=== PATIENT | female | born 1965 | race Caucasian/White ===

== ENCOUNTER 2020-02-14 14:51 | Emergency (ER) | payer MEDICAID ==
[~2020-02-14] VITALS: Ht 165.1 cm; Wt 127.3 kg
[~2020-02-14 14:51] MED LIST: ALBU8.5H4 IH; BENZ-16 PO; GABA-532 PO; IBUP-1984 PO; PRED20TA PO; levothyroxine
[2020-02-14 15:00] VITALS: BP 137/77
[2020-02-14 16:17] LABS: BASOPHILS # (AUTO) 0.1 X10'3 (0-0.2); BASOPHILS % (AUTO) 1.1 % (0-1); EOSINOPHILS # (AUTO) 0.2 X10'3 (0-0.9); EOSINOPHILS % (AUTO) 2.1 % (0-6); HEMATOCRIT 46.7 % (35.0-45.0); HEMOGLOBIN 15.7 g/dl (12.0-16.0); LYMPHOCYTES # (AUTO) 2.7 X10'3 (1.1-4.8); LYMPHOCYTES % (AUTO) 31.2 % (21-51); MEAN CORPUSCULAR HEMOGLOBIN 30.6 PG (27.0-31.0); MEAN CORPUSCULAR HGB CONC 33.5 g/dL (33.0-36.5); MEAN CORPUSCULAR VOLUME 91.4 FL (78-98); MEAN PLATELET VOLUME 9.3 FL (7.4-10.4); MONOCYTES # (AUTO) 0.6 X10'3 (0-0.9); MONOCYTES % (AUTO) 6.9 % (2-12); NEUTROPHILS % (AUTO) 58.7 % (42-75); PLATELET COUNT 247 X10'3 (140-440); RED BLOOD COUNT 5.11 X10'6 (4.20-5.60); RED CELL DISTRIBUTION WIDTH 13.1 % (11.5-14.5); WHITE BLOOD COUNT 8.5 X10'3 (4.5-11.0)
[2020-02-14 16:32] LABS: ALANINE AMINOTRANSFERASE 51 U/L (12-78); ALBUMIN/GLOBULIN RATIO 1.1 (1.1-1.5); ALKALINE PHOSPHATASE 77 IU/L (46-116); AMYLASE 28 U/L (25-115); ANION GAP 9 (8-16); ASPARTATE AMINO TRANSFERASE 40 U/L (10-37); BILIRUBIN,TOTAL 0.4 MG/DL (0.1-1.0); BLOOD UREA NITROGEN 14 MG/DL (7-18); CALCIUM 9.7 MG/DL (8.5-10.1); CHLORIDE 100 MMOL/L (99-107); GLUCOSE 129 MG/DL (70-104); LIPASE 98 U/L (73-393); POTASSIUM 4.1 MMOL/L (3.5-5.1); SODIUM 138 MMOL/L (135-145); TOTAL CARBON DIOXIDE 29.3 MMOL/L (24-32); TOTAL PROTEIN 7.7 G/DL (6.4-8.2); eGFR 87 ML/MIN
[2020-02-14 16:55] LABS: TROPONIN I < 0.04 NG/ML (0.0-0.05)
== END 2020-02-14 17:26 | disposition home or self-care (01) ==
LOC: ER 14:51
DX: R22.43 Localized swelling, mass and lump, lower limb, bilateral (principal); R53.83 Other fatigue; E03.9 Hypothyroidism, unspecified; Z56.0 Unemployment, unspecified; Z98.890 Other specified postprocedural states; Z88.8 Allergy status to other drugs, medicaments and biological substances; Z79.899 Other long term (current) drug therapy
CPT/HCPCS: 36415; 80053; 82150; 82948; 83690; 83880; 84443; 84484; 85025; 99283

== ENCOUNTER 2022-07-31 13:37 | Inpatient (IN) | payer BC, MEDICAID ==
[~2022-07-31] VITALS: Ht 165.1 cm; Wt 120.3 kg
[2022-07-31] MEDS ORDERED: ondansetron/PF 4mg/2ml inj IV ONE (14:00)
[2022-07-31] MEDS ORDERED: morphine 4 MG/ML inj SYRINge IV ONE ×2 (14:00→18:10)
[2022-07-31] MEDS ORDERED: mag hydrox/Alum hydrox/simeth 30ml oral suspension PO PRN (17:05)
[2022-07-31] MEDS ORDERED: metoclopramide 5 mg/ml inj IV PRN (17:05)
[2022-07-31] MEDS ORDERED: acetaminophen 325mg tablet PO PRN (17:05)
[2022-07-31] MEDS ORDERED: ondansetron 4mg rapidly disintigrating tab PO PRN (17:05)
[2022-07-31] MEDS ORDERED: magnesium hydroxide 30ml (MOM) UD suspension PO PRN (17:05)
[2022-07-31] MEDS ORDERED: bisacodyl 10mg suppository rectal RC PRN (17:05)
[2022-07-31] MEDS ORDERED: ondansetron/PF 4mg/2ml inj IV PRN (17:05)
[2022-07-31] MEDS ORDERED: magnesium 4gm in 100ml NS 100 ML IV PRN (17:05)
[2022-07-31] MEDS ORDERED: HYDROcodone/acetaminophen 5mg/325mg tablet PO PRN (17:05)
[2022-07-31] MEDS ORDERED: magnesium Cl slow-release 64mg tablet PO PRN (17:05)
[2022-07-31] MEDS ORDERED: potassium Cl 40MEQ/1/2NS 520ml 520 ML IV PRN (17:05)
[2022-07-31] MEDS ORDERED: potassium Cl 20 mEq SR tablet PO PRN ×2 (17:05)
[2022-07-31] MEDS: normal saline 1000ml 1,000 ML IV SCH (17:21)
[2022-07-31] MEDS ORDERED: NO HOME MEDS (17:21)
[2022-07-31] MEDS ORDERED: MESSAGE TO PHARMACY PO ONE (17:25)
[2022-07-31] MEDS ORDERED: DEXTROSE 15 GM of carb/4 tabs (each vial/BOTTLE has 4 tablets) PO PRN ×2 (17:25)
[2022-07-31] MEDS ORDERED: glucagon, human recombinant 1mg kit SUBCUT PRN (17:25)
[2022-07-31] MEDS ORDERED: dextrose 50%-water 50ml dispensing syringe IV PRN ×2 (17:25)
[2022-07-31] MEDS ORDERED: insulin Lispro (HumaLOG) vial - multi-dose SQ SCH (17:25)
[2022-07-31 17:36] LABS: BASOPHILS # (AUTO) 0.1 X10'3 (0-0.2); BASOPHILS % (AUTO) 0.7 % (0-1); EOSINOPHILS # (AUTO) 0.1 X10'3 (0-0.9); EOSINOPHILS % (AUTO) 0.8 % (0-6); HEMOGLOBIN 13.8 g/dl (12.0-16.0); LYMPHOCYTES # (AUTO) 2.7 X10'3 (1.1-4.8); LYMPHOCYTES % (AUTO) 19.6 % (21-51); MEAN CORPUSCULAR HGB CONC 32.9 g/dL (33.0-36.5); MEAN CORPUSCULAR VOLUME 91.1 FL (78-98); MEAN PLATELET VOLUME 9.5 FL (7.4-10.4); MONOCYTES # (AUTO) 0.8 X10'3 (0-0.9); MONOCYTES % (AUTO) 5.7 % (2-12); NEUTROPHILS % (AUTO) 73.2 % (42-75); PLATELET COUNT 212 X10'3 (140-440); RED BLOOD COUNT 4.61 X10'6 (4.20-5.60); RED CELL DISTRIBUTION WIDTH 13.3 % (11.5-14.5); WHITE BLOOD COUNT 13.6 X10'3 (4.5-11.0)
[2022-07-31 17:47] LABS: APTT 31 SECONDS (22-32)
[2022-07-31 17:49] LABS: ALBUMIN 3.5 G/DL (3.4-5.0); ALBUMIN/GLOBULIN RATIO 1.2 (1.1-1.5); ALKALINE PHOSPHATASE 68 IU/L (46-116); ANION GAP 8 (8-16); ASPARTATE AMINO TRANSFERASE 61 U/L (10-37); BILIRUBIN,TOTAL 0.6 MG/DL (0.1-1.0); BLOOD UREA NITROGEN 10 MG/DL (7-18); BUN/CREATININE RATIO 18.2 (6.6-38.0); CALCIUM 8.8 MG/DL (8.5-10.1); CHLORIDE 105 MMOL/L (99-107); CREATININE 0.55 MG/DL (0.40-0.90); GLUCOSE 107 MG/DL (70-104); POTASSIUM 4.1 MMOL/L (3.5-5.1); SODIUM 139 MMOL/L (135-145); TOTAL PROTEIN 6.5 G/DL (6.4-8.2); eGFR > 90 ML/MIN
[2022-07-31 18:08] LABS: ALANINE AMINOTRANSFERASE 51 U/L (12-78)
[2022-07-31 18:15] LABS: HEMOGLOBIN A1C 6.3 % (4.5-6.2)
[2022-07-31] MEDS: HYDROmorphone/PF 0.2 MG/ML SYRINGE IV PRN (19:01)
[2022-07-31] MEDS: K and/or MAG REPLACEMENT MC SCH (20:00)
[2022-07-31] MEDS: docusate sod 100mg capsule PO SCH (20:00)
[2022-07-31] MEDS ORDERED: temazepam 15mg capsule PO PRN (21:00)
[2022-07-31] MEDS: insulin glargine (Lantus) pen - multi-dose SQ SCH (21:00)
[2022-07-31] MEDS: HYDROmorphone inj. 0.5 MG/0.5 ML DISP.SYRIN IV PRN (23:21)
[2022-08-01] VITALS (13 sets, daily range): BP systolic 113–156; BP diastolic 43–71
[2022-08-01] MEDS: HYDROcodone/acetaminophen 10/325mg tab PO PRN ×2 (01:24→05:51)
[2022-08-01] MEDS: HYDROmorphone/PF 0.2 MG/ML SYRINGE IV PRN ×2 (01:49→06:06)
[2022-08-01] MEDS: normal saline 1000ml 1,000 ML IV SCH ×3 (01:49→21:06)
[2022-08-01 04:29] LABS: BASOPHILS # (AUTO) 0.1 X10'3 (0-0.2); BASOPHILS % (AUTO) 1.1 % (0-1); EOSINOPHILS # (AUTO) 0.1 X10'3 (0-0.9); EOSINOPHILS % (AUTO) 1.7 % (0-6); HEMATOCRIT 40.8 % (35.0-45.0); HEMOGLOBIN 13.8 g/dl (12.0-16.0); LYMPHOCYTES # (AUTO) 1.4 X10'3 (1.1-4.8); LYMPHOCYTES % (AUTO) 17.7 % (21-51); MEAN CORPUSCULAR HEMOGLOBIN 30.4 PG (27.0-31.0); MEAN CORPUSCULAR HGB CONC 33.9 g/dL (33.0-36.5); MEAN CORPUSCULAR VOLUME 89.6 FL (78-98); MEAN PLATELET VOLUME 8.9 FL (7.4-10.4); MONOCYTES # (AUTO) 0.5 X10'3 (0-0.9); MONOCYTES % (AUTO) 6.9 % (2-12); NEUTROPHILS # (AUTO) 5.6 X10'3 (1.8-7.7); NEUTROPHILS % (AUTO) 72.6 % (42-75); PLATELET COUNT 204 X10'3 (140-440); RED BLOOD COUNT 4.55 X10'6 (4.20-5.60); RED CELL DISTRIBUTION WIDTH 13.4 % (11.5-14.5); WHITE BLOOD COUNT 7.7 X10'3 (4.5-11.0)
[2022-08-01] MEDS: HYDROmorphone inj. 0.5 MG/0.5 ML DISP.SYRIN IV PRN (04:35)
[2022-08-01 04:47] LABS: ALANINE AMINOTRANSFERASE 90 U/L (12-78); ALBUMIN 3.5 G/DL (3.4-5.0); ALBUMIN/GLOBULIN RATIO 1.2 (1.1-1.5); ALKALINE PHOSPHATASE 68 IU/L (46-116); ANION GAP 8 (8-16); ASPARTATE AMINO TRANSFERASE 76 U/L (10-37); BILIRUBIN,TOTAL 0.8 MG/DL (0.1-1.0); BLOOD UREA NITROGEN 8 MG/DL (7-18); BUN/CREATININE RATIO 13.8 (6.6-38.0); CALCIUM 8.4 MG/DL (8.5-10.1); CHLORIDE 103 MMOL/L (99-107); CREATININE 0.58 MG/DL (0.40-0.90); GLUCOSE 130 MG/DL (70-104); POTASSIUM 4.1 MMOL/L (3.5-5.1); SODIUM 139 MMOL/L (135-145); TOTAL PROTEIN 6.5 G/DL (6.4-8.2); eGFR > 90 ML/MIN
--- NOTE | 2022-08-01 05:18 | NUR ---
pt refusing full turns for q2hr turning due to pain. Pt medicated for pain, still refuses. She was completely mobile and independent prior and has clear skin on admit, does not appear to be high risk for break down. So small weight shifts as tolerated being utilized for now. Will keep reinforcing the importance of turning to prevent skin breakdown.
--- NOTE | 2022-08-01 06:30 | NUR ---
Patient in room CICU 2009. I have received report from Og IVY and had the opportunity to ask questions and assume patient care.
[2022-08-01] MEDS ORDERED: naloxone 0.4 mg/ml inj IV PRN (07:25)
[2022-08-01] MEDS ORDERED: HYDROmorph/NS 0.2 mg/ml PCA 100 ML IV SCH (07:25)
[2022-08-01] MEDS: K and/or MAG REPLACEMENT MC SCH ×2 (08:00→20:00)
[2022-08-01] MEDS: docusate sod 100mg capsule PO SCH ×4 (08:00→20:00)
[2022-08-01] MEDS: sennosides/docusate sodium tablet PO SCH ×2 (09:44→19:10)
[2022-08-01] MEDS: HYDROmorph/NS 0.2 mg/ml PCA 100 ML IV SCH ×8 (09:48→23:00)
--- NOTE | 2022-08-01 09:56 | NUR ---
MD Dr. Pineda to see pt earlier this am. Explained plan and reason for delayed surgery. Plan for surgery on Friday. Call to Dr. Smith re: pain and use of HELP DESK SUPERVISOR for pt. Orders received.
[2022-08-01] MEDS ORDERED: FLU VACC QS2022-23(6MOS UP)/PF 60 MCG/0.5 ML SYRINGE IMVAC ONE (10:00)
--- NOTE | 2022-08-01 10:44 | NUR ---
Nutrition consult: Pt denies wt loss or decreased appetite per malnutrition risk screen with RN. Per EMR pt with h/o T2DM, well controlled with A1c 6.3%, DM education not warranted at this time. No nutritional needs identified at this time. Will continue to follow. Addendum: 08/01/22 at [address] Amended: Links added.
[2022-08-01] MEDS ORDERED: ipratropium/albuterol 3ml nebule NEB PRN ×2 (15:40→15:55)
--- NOTE | 2022-08-01 16:00 | NUR ---
Skin: Pt noted to have mottling looking skin from upper thigh to mid calf, bilaterally. Amado IVY noted as well. Pt states this is normal for her. Pulses remain intact and palpable, skin at thigh to toes remains warm.
--- NOTE | 2022-08-01 16:48 | NUR ---
Repositioning Pt when repositioned is very painful. Additional dose administered before moving. Pat settled down pretty well post move. C/O headache and requested Tylenol for pain.
[2022-08-01] MEDS: acetaminophen 325mg tablet PO PRN (16:55)
[2022-08-01] MEDS: ipratropium/albuterol 3ml nebule NEB SCH ×2 (19:07→23:00)
[2022-08-01] MEDS: diphenhydrAMINE 25mg capsule PO PRN (19:10)
[2022-08-01] MEDS: heparin, porcine 5000 units/ml vial SQ SCH (19:12)
[2022-08-01] MEDS: insulin glargine (Lantus) pen - multi-dose SQ SCH (21:00)
[2022-08-02] VITALS (9 sets, daily range): BP systolic 110–145; BP diastolic 60–83
[2022-08-02] MEDS: HYDROmorph/NS 0.2 mg/ml PCA 100 ML IV SCH ×12 (01:00→23:00)
[2022-08-02] MEDS: diphenhydrAMINE 25mg capsule PO PRN (02:16)
[2022-08-02] MEDS: acetaminophen 325mg tablet PO PRN ×2 (02:16→10:23)
[2022-08-02] MEDS: ipratropium/albuterol 3ml nebule NEB SCH ×6 (03:00→23:00)
[2022-08-02 05:19] LABS: BASOPHILS # (AUTO) 0.1 X10'3 (0-0.2); BASOPHILS % (AUTO) 0.8 % (0-1); EOSINOPHILS # (AUTO) 0.2 X10'3 (0-0.9); EOSINOPHILS % (AUTO) 1.5 % (0-6); HEMATOCRIT 39.9 % (35.0-45.0); HEMOGLOBIN 13.2 g/dl (12.0-16.0); LYMPHOCYTES # (AUTO) 1.4 X10'3 (1.1-4.8); LYMPHOCYTES % (AUTO) 13.5 % (21-51); MEAN CORPUSCULAR HEMOGLOBIN 30.3 PG (27.0-31.0); MEAN CORPUSCULAR VOLUME 91.8 FL (78-98); MEAN PLATELET VOLUME 9.7 FL (7.4-10.4); MONOCYTES # (AUTO) 0.9 X10'3 (0-0.9); MONOCYTES % (AUTO) 8.4 % (2-12); NEUTROPHILS # (AUTO) 8.1 X10'3 (1.8-7.7); NEUTROPHILS % (AUTO) 75.8 % (42-75); PLATELET COUNT 177 X10'3 (140-440); RED BLOOD COUNT 4.35 X10'6 (4.20-5.60); RED CELL DISTRIBUTION WIDTH 13.5 % (11.5-14.5); WHITE BLOOD COUNT 10.7 X10'3 (4.5-11.0)
[2022-08-02 05:26] LABS: ALANINE AMINOTRANSFERASE 64 U/L (12-78); ALBUMIN 3.1 G/DL (3.4-5.0); ALKALINE PHOSPHATASE 63 IU/L (46-116); ASPARTATE AMINO TRANSFERASE 30 U/L (10-37); BILIRUBIN,TOTAL 0.8 MG/DL (0.1-1.0); BLOOD UREA NITROGEN 6 MG/DL (7-18); BUN/CREATININE RATIO 12.5 (6.6-38.0); CHLORIDE 99 MMOL/L (99-107); CREATININE 0.48 MG/DL (0.40-0.90); GLUCOSE 132 MG/DL (70-104); MAGNESIUM 1.9 MG/DL (1.5-2.4); POTASSIUM 3.7 MMOL/L (3.5-5.1); SODIUM 133 MMOL/L (135-145); TOTAL PROTEIN 6.1 G/DL (6.4-8.2); eGFR > 90 ML/MIN
[2022-08-02 05:32] LABS: ANION GAP 6 (8-16); TOTAL CARBON DIOXIDE 27.7 MMOL/L (24-32)
[2022-08-02] MEDS: K and/or MAG REPLACEMENT MC SCH ×2 (07:46→20:00)
[2022-08-02] MEDS: docusate sod 100mg capsule PO SCH ×3 (07:49→21:50)
[2022-08-02] MEDS: sennosides/docusate sodium tablet PO SCH ×2 (08:48→21:50)
[2022-08-02] MEDS: heparin, porcine 5000 units/ml vial SQ SCH ×2 (08:49→21:51)
[2022-08-02] MEDS: normal saline 1000ml 1,000 ML IV SCH ×2 (08:49→16:57)
[2022-08-02] MEDS ORDERED: LORazepam 2 mg/ml vial IV PRN ×2 (10:00)
[2022-08-02] MEDS ORDERED: LORazepam 0.5 MG tablet PO PRN (10:00)
[2022-08-02] MEDS ORDERED: LORazepam 1 MG tablet PO PRN (10:00)
[2022-08-02] MEDS ORDERED: ipratropium/albuterol 3ml nebule NEB PRN (10:00)
--- NOTE | 2022-08-02 18:30 | NUR ---
Patient in room [facility] 2009. I have received report from Radha IVY and had the opportunity to ask questions and assume patient care. Addendum: 08/02/22 at 1928 by Sheridan Leong RN Amended: Links added.
--- NOTE | 2022-08-02 20:00 | NUR ---
Report called to Aubree IVY receiving nurse. Transferred via ortho bed w/trapeze to room 346B. Belongings( see belongings list). Patient awake, alert, painful with movement, using MEN'S GARMENT FITTER independently, sinus rhythm, no ectopy. peripheral pulses palpable bilaterally in lower extremities, bilateral mottling of lower extremities noted-present on admission,detailed in report to receiving RN. cap refill 3 sec. Special Issues communicated to receiving nurse.
[2022-08-02] MEDS: insulin glargine (Lantus) pen - multi-dose SQ SCH (21:00)
[2022-08-03] VITALS (11 sets, daily range): BP systolic 85–134; BP diastolic 36–77
[2022-08-03] MEDS: HYDROmorph/NS 0.2 mg/ml PCA 100 ML IV SCH ×6 (01:00→11:00)
[2022-08-03] MEDS: ipratropium/albuterol 3ml nebule NEB SCH ×6 (03:00→23:00)
[2022-08-03] MEDS: acetaminophen 325mg tablet PO PRN (04:12)
[2022-08-03] MEDS: normal saline 1000ml 1,000 ML IV SCH ×2 (04:16→15:47)
[2022-08-03 05:53] LABS: BASOPHILS # (AUTO) 0.1 X10'3 (0-0.2); BASOPHILS % (AUTO) 0.5 % (0-1); EOSINOPHILS # (AUTO) 0.1 X10'3 (0-0.9); EOSINOPHILS % (AUTO) 0.6 % (0-6); HEMATOCRIT 38.8 % (35.0-45.0); LYMPHOCYTES # (AUTO) 1.3 X10'3 (1.1-4.8); LYMPHOCYTES % (AUTO) 11.7 % (21-51); MEAN CORPUSCULAR HEMOGLOBIN 30.4 PG (27.0-31.0); MEAN CORPUSCULAR HGB CONC 33.6 g/dL (33.0-36.5); MEAN CORPUSCULAR VOLUME 90.4 FL (78-98); MEAN PLATELET VOLUME 9.5 FL (7.4-10.4); MONOCYTES # (AUTO) 0.9 X10'3 (0-0.9); MONOCYTES % (AUTO) 8.2 % (2-12); NEUTROPHILS # (AUTO) 8.7 X10'3 (1.8-7.7); PLATELET COUNT 185 X10'3 (140-440); RED BLOOD COUNT 4.29 X10'6 (4.20-5.60); RED CELL DISTRIBUTION WIDTH 13.1 % (11.5-14.5); WHITE BLOOD COUNT 11.1 X10'3 (4.5-11.0)
[2022-08-03 05:57] LABS: ALANINE AMINOTRANSFERASE 47 U/L (12-78); ALBUMIN 2.9 G/DL (3.4-5.0); ALBUMIN/GLOBULIN RATIO 0.8 (1.1-1.5); ALKALINE PHOSPHATASE 67 IU/L (46-116); ANION GAP 3 (8-16); ASPARTATE AMINO TRANSFERASE 20 U/L (10-37); BILIRUBIN,TOTAL 0.7 MG/DL (0.1-1.0); BLOOD UREA NITROGEN 7 MG/DL (7-18); BUN/CREATININE RATIO 12.7 (6.6-38.0); CALCIUM 8.7 MG/DL (8.5-10.1); CHLORIDE 99 MMOL/L (99-107); CREATININE 0.55 MG/DL (0.40-0.90); GLUCOSE 163 MG/DL (70-104); POTASSIUM 3.7 MMOL/L (3.5-5.1); SODIUM 132 MMOL/L (135-145); TOTAL CARBON DIOXIDE 30.5 MMOL/L (24-32); TOTAL PROTEIN 6.7 G/DL (6.4-8.2); eGFR > 90 ML/MIN
--- NOTE | 2022-08-03 07:00 | NUR ---
Patient in room [facility] 346. I have received report from ROBERTH IVY and had the opportunity to ask questions and assume patient care.
[2022-08-03] MEDS: docusate sod 100mg capsule PO SCH ×2 (07:45→20:13)
[2022-08-03] MEDS: sennosides/docusate sodium tablet PO SCH ×2 (07:47→20:14)
[2022-08-03] MEDS: K and/or MAG REPLACEMENT MC SCH ×2 (08:00→19:19)
[2022-08-03] MEDS ORDERED: fentaNYL/PF 50MCG/1 ML 2ML syringe ONE (09:36)
[2022-08-03] MEDS ORDERED: midazolam 1 mg/ML 2ml injection ONE (09:37)
[2022-08-03] MEDS ORDERED: ceFAZolin 1000mg inj ONE ×3 (09:57)
[2022-08-03] MEDS ORDERED: propofol inj 20 ML IV ONE (09:57)
[2022-08-03] MEDS ORDERED: LIDOcaine 2% (20mg/ml) 5ml vial ONE (09:57)
[2022-08-03] MEDS ORDERED: ePHEDrine 50MG/ML INJ. ONE (09:57)
[2022-08-03] MEDS ORDERED: ondansetron/PF 4mg/2ml inj ONE (09:58)
[2022-08-03] MEDS ORDERED: dexamethasone sod phosphate 4mg/ml inj. ONE (09:58)
[2022-08-03] MEDS ORDERED: ROPIVAcaine 0.5% (5mg/ml) 30ml vial IJ ONE (10:00)
--- NOTE | 2022-08-03 10:22 | NUR ---
Received from OR via , accompanied by Anesthesiologist CHAVA OR NURSE and report given by Anesthesiolgist. PT IS DROWSY YET ABLE TO RESPOND TO VERBAL STIMULI. DENIES PAIN OR DISCOMFORT. ROSEN IN PLACE; PATENT. [place] DRESSING TO UPPER RT THIGH; CDI. HYPOTENSIVE; PER DONNIE WATCH CLOSELY BEFORE GIVING MED. 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 Addendum: 08/03/22 at 1123 by Mimi Doss RN Amended: Links added.
--- NOTE | 2022-08-03 11:33 | NUR ---
Patient in room [facility] 346. I have received report from TAVARES IVY and had the opportunity to ask questions and assume patient care.
--- NOTE | 2022-08-03 11:42 | NUR ---
PATIENT TAKEN TO ORTHO FLOOR ROOM WITH ALL BELONGINGS AND HOOKED UP TO ALL MONITORS IN ROOM AND REPORT GIVEN TO RN WHO HAS TAKEN OVER PATIENT CARE. Addendum: 08/03/22 at 1207 by Mimi Doss RN Amended: Links added.
[2022-08-03] MEDS ORDERED: PCA WASTE DOCUMENTATION MC SCH (12:50)
[2022-08-03] MEDS: HYDROcodone/acetaminophen 10/325mg tab PO PRN (15:41)
--- NOTE | 2022-08-03 17:32 | NUR ---
PAGER ID: [phone] MESSAGE: J[facility]TON[facility]G [id number] RE: 346M Leticia FLORES PATIENT STATES THAT THE NORCO IS NOT WORKING AND STILL STATING 04/01 PAIN. MELANIA CHOU Addendum: 08/03/22 at 1734 by Apolinar Baig RN MD RESPONDED AT THIS TIME WITH NEW ORDERS.
[2022-08-03] MEDS ORDERED: HYDROmorphone inj. 0.5 MG/0.5 ML DISP.SYRIN IV PRN (17:35)
--- NOTE | 2022-08-03 18:29 | NUR ---
Problems reprioritized. Patient report given, questions answered & plan of care reviewed with RONA IVY.
--- NOTE | 2022-08-03 18:31 | NUR ---
Patient in room [facility] 346. I have received report from CATA Bee and had the opportunity to ask questions and assume patient care.
[2022-08-03] MEDS: famotidine 20mg tablet PO SCH (20:14)
[2022-08-03] MEDS: insulin glargine (Lantus) pen - multi-dose SQ SCH (21:35)
[2022-08-04] MEDS: oxyCODONE/APAP 5-325mg tablet PO PRN ×2 (02:38→10:04)
[2022-08-04 02:40] VITALS: BP 136/72
[2022-08-04] MEDS: ipratropium/albuterol 3ml nebule NEB SCH ×3 (02:55→11:57)
[2022-08-04 05:39] LABS: BASOPHILS % (AUTO) 0.4 % (0-1); EOSINOPHILS % (AUTO) 0.2 % (0-6); HEMATOCRIT 37.3 % (35.0-45.0); HEMOGLOBIN 12.4 g/dl (12.0-16.0); LYMPHOCYTES # (AUTO) 1.1 X10'3 (1.1-4.8); LYMPHOCYTES % (AUTO) 11.1 % (21-51); MEAN CORPUSCULAR HEMOGLOBIN 30.1 PG (27.0-31.0); MEAN CORPUSCULAR HGB CONC 33.3 g/dL (33.0-36.5); MEAN CORPUSCULAR VOLUME 90.4 FL (78-98); MEAN PLATELET VOLUME 9.9 FL (7.4-10.4); MONOCYTES # (AUTO) 1.1 X10'3 (0-0.9); MONOCYTES % (AUTO) 10.4 % (2-12); NEUTROPHILS # (AUTO) 7.8 X10'3 (1.8-7.7); NEUTROPHILS % (AUTO) 77.9 % (42-75); PLATELET COUNT 190 X10'3 (140-440); RED BLOOD COUNT 4.13 X10'6 (4.20-5.60); RED CELL DISTRIBUTION WIDTH 13.2 % (11.5-14.5); WHITE BLOOD COUNT 10.1 X10'3 (4.5-11.0)
[2022-08-04] MEDS: oxyCODONE/APAP 10/325mg tablet PO PRN ×2 (05:45→15:27)
[2022-08-04 05:48] LABS: ALANINE AMINOTRANSFERASE 39 U/L (12-78); ALBUMIN 2.7 G/DL (3.4-5.0); ALBUMIN/GLOBULIN RATIO 0.7 (1.1-1.5); ALKALINE PHOSPHATASE 71 IU/L (46-116); ANION GAP 7 (8-16); ASPARTATE AMINO TRANSFERASE 21 U/L (10-37); BILIRUBIN,TOTAL 0.4 MG/DL (0.1-1.0); BLOOD UREA NITROGEN 9 MG/DL (7-18); BUN/CREATININE RATIO 17.6 (6.6-38.0); CALCIUM 8.8 MG/DL (8.5-10.1); CHLORIDE 102 MMOL/L (99-107); CREATININE 0.51 MG/DL (0.40-0.90); GLUCOSE 155 MG/DL (70-104); MAGNESIUM 2.3 MG/DL (1.5-2.4); POTASSIUM 4.2 MMOL/L (3.5-5.1); SODIUM 138 MMOL/L (135-145); TOTAL CARBON DIOXIDE 28.8 MMOL/L (24-32); TOTAL PROTEIN 6.4 G/DL (6.4-8.2); eGFR > 90 ML/MIN
--- NOTE | 2022-08-04 06:14 | NUR ---
Problems reprioritized. Patient report given, questions answered & plan of care reviewed with CATA Bee.
[2022-08-04 07:08] VITALS: BP 113/57
[2022-08-04] MEDS: K and/or MAG REPLACEMENT MC SCH (08:00)
[2022-08-04] MEDS: famotidine 20mg tablet PO SCH (08:16)
[2022-08-04] MEDS: sennosides/docusate sodium tablet PO SCH (08:16)
[2022-08-04] MEDS: docusate sod 100mg capsule PO SCH (08:17)
[2022-08-04] MEDS ORDERED: aspirin 325mg tablet PO SCH (08:30)
--- NOTE | 2022-08-04 09:59 | NUR ---
patient refused to have insulin at this time. she understands that her blood glucose is elevated and still does not want insulin treatment at this time.
[2022-08-04 10:53] VITALS: BP 135/60
--- NOTE | 2022-08-04 15:16 | NUR ---
PAGER ID: [phone] MESSAGE: [facility]G [id number] RE: [address]B FLOR[address] Leticia PATIENTS CT IS RESULTED AND SHE WOULD LIKE TO GO HOME. SHE JUST PULLED OUT HER IV. THANKS
[2022-08-04] MEDS ORDERED: PER5325T PO (15:24)
[2022-08-04] MEDS ORDERED: ASPI-1 PO (15:24)
--- NOTE | 2022-08-04 18:45 | NUR ---
message sent to case management to have home health started on this patient.
--- NOTE | 2022-08-04 18:49 | NUR ---
Patient discharged home with front wheel walker. Patient has taken out the IV prior to discharge. No dressing needed. Patient left with all of the belongings at this time. Patient discharge teaching was done with family in the room. New medications were gone over at discharge and patient expressed verbal understanding of teaching. Patient left in wheel chair to the [facility] and was transported home via private vehicle. Case management was notified of the discharge with home health.
== END 2022-08-04 17:07 | disposition home or self-care (01) | DRG 482 ==
LOC: ER 13:38 → ED HOLD 17:04 → CICU 2S 08-01 01:05 → SUR 3N 08-02 20:18
PROVIDERS: ADMIT Family Medicine; ATTEND Family Medicine
PROC: 0QS634Z Reposition Right Upper Femur with Internal Fixation Device, Percutaneous Approach (ICD-10-PCS; principal; 2022-08-03 09:31)
DX: S72.091A Other fracture of head and neck of right femur, initial encounter for closed fracture (principal); E03.9 Hypothyroidism, unspecified; E11.9 Type 2 diabetes mellitus without complications; W01.0XXA Fall on same level from slipping, tripping and stumbling without subsequent striking against object, initial encounter; Z20.822 Contact with and (suspected) exposure to COVID-19; G47.36 Sleep related hypoventilation in conditions classified elsewhere; Y92.009 Unspecified place in unspecified non-institutional (private) residence as the place of occurrence of the external cause; Z79.82 Long term (current) use of aspirin; Z85.43 Personal history of malignant neoplasm of ovary; Z87.891 Personal history of nicotine dependence; Z90.710 Acquired absence of both cervix and uterus; Z88.8 Allergy status to other drugs, medicaments and biological substances; Z90.49 Acquired absence of other specified parts of digestive tract; Z56.0 Unemployment, unspecified
CPT/HCPCS: 36415; 71045; 71250; 72192; 73502; 76000; 80053; 82948; 83036; 83735; 84443; 85025; 85610; 85730; 86885; 86900; 86901; 87081; 87811; 90686; 94640; 94760; 96374; 96375; 97110; 97116; 97161; 97530; 99285; A4615; A4618; A4620; A5200; A6213; A7000; C1713; G0378; J0690; J1100; J1170; J1644; J1815; J2060; J2250; J2270; J2405; J2704; J2795; J3010; J3490; J7030; J7060; J7120; Q0163

== ENCOUNTER 2022-08-07 08:52 | Inpatient (IN) | payer BC ==
[~2022-08-07] VITALS: Ht 167.6 cm; Wt 127.3 kg
[~2022-08-07 08:52] MED LIST changes: -ALBU8.5H4 IH; +ASPI-1 PO; -BENZ-16 PO; -GABA-532 PO; -IBUP-1984 PO; +PER5325T PO; -PRED20TA PO; -levothyroxine
[2022-08-07] MEDS ORDERED: normal saline 1000ML IV soln IVB ONE (09:20)
[2022-08-07] MEDS ORDERED: ondansetron/PF 4mg/2ml inj IV ONE (09:20)
[2022-08-07 09:34] LABS: BASOPHILS # (AUTO) 0.1 X10'3 (0-0.2); BASOPHILS % (AUTO) 1.3 % (0-1); EOSINOPHILS # (AUTO) 0.4 X10'3 (0-0.9); EOSINOPHILS % (AUTO) 5.6 % (0-6); HEMATOCRIT 38.6 % (35.0-45.0); HEMOGLOBIN 12.9 g/dl (12.0-16.0); LYMPHOCYTES # (AUTO) 2.4 X10'3 (1.1-4.8); LYMPHOCYTES % (AUTO) 31.1 % (21-51); MEAN CORPUSCULAR HGB CONC 33.3 g/dL (33.0-36.5); MEAN PLATELET VOLUME 8.8 FL (7.4-10.4); MONOCYTES # (AUTO) 0.7 X10'3 (0-0.9); NEUTROPHILS # (AUTO) 4.2 X10'3 (1.8-7.7); PLATELET COUNT 257 X10'3 (140-440); RED CELL DISTRIBUTION WIDTH 13.6 % (11.5-14.5); WHITE BLOOD COUNT 7.9 X10'3 (4.5-11.0)
[2022-08-07] MEDS: morphine 4 MG/ML inj SYRINge IV PRN ×2 (09:54→09:58)
[2022-08-07 10:03] LABS: ALANINE AMINOTRANSFERASE 43 U/L (12-78); ALBUMIN 2.8 G/DL (3.4-5.0); ALBUMIN/GLOBULIN RATIO 0.8 (1.1-1.5); ALKALINE PHOSPHATASE 71 IU/L (46-116); ASPARTATE AMINO TRANSFERASE 30 U/L (10-37); BILIRUBIN,TOTAL 0.4 MG/DL (0.1-1.0); BLOOD UREA NITROGEN 10 MG/DL (7-18); BUN/CREATININE RATIO 17.5 (6.6-38.0); CALCIUM 8.7 MG/DL (8.5-10.1); CREATININE 0.57 MG/DL (0.40-0.90); GLUCOSE 112 MG/DL (70-104); TOTAL CARBON DIOXIDE 30.1 MMOL/L (24-32); TOTAL PROTEIN 6.3 G/DL (6.4-8.2); eGFR > 90 ML/MIN
[2022-08-07 10:24] LABS: ANION GAP 6 (8-16); CHLORIDE 104 MMOL/L (99-107); POTASSIUM 3.7 MMOL/L (3.5-5.1); SODIUM 140 MMOL/L (135-145)
[2022-08-07] MEDS ORDERED: iohexol 350MG/ML 100ml bottle IV ONE (10:37)
[2022-08-07] MEDS ORDERED: heparin 10,000 units/1 ML INJ IV ONE ×2 (12:05)
[2022-08-07 12:28] LABS: APTT 30 SECONDS (22-32)
[2022-08-07 12:33] LABS: ABG HCO3 26.7 mmol/L (22.0-26.0); ABG OXYGEN SATURATION 97.7 % (94-97); ABG PCO2 (T) 40.7 mmHg (32.0-45.0); ABG PO2 (T) 96.4 mmHg (75.0-100.0); ALLEN'S TEST POSITIVE; FCOHb 0.6 % (0.0-3.9); FLOW 4 L/min; FMetHb 0.2 % (0.0-1.5); FO2Hb 96.9 % (94-97); PATIENT TEMPERATURE 36.2; TOTAL HEMOGLOBIN 13.3 G/dl (12.0-16.0)
[2022-08-07] MEDS ORDERED: HYDROcodone/acetaminophen 10/325mg tab PO PRN (12:45)
[2022-08-07] MEDS ORDERED: magnesium Cl slow-release 64mg tablet PO PRN (12:45)
[2022-08-07] MEDS ORDERED: potassium Cl 40MEQ/1/2NS 520ml 520 ML IV PRN (12:45)
[2022-08-07] MEDS ORDERED: magnesium 4gm in 100ml NS 100 ML IV PRN (12:45)
[2022-08-07] MEDS ORDERED: mag hydrox/Alum hydrox/simeth 30ml oral suspension PO PRN (12:45)
[2022-08-07] MEDS ORDERED: ondansetron 4mg rapidly disintigrating tab PO PRN (12:45)
[2022-08-07] MEDS ORDERED: HYDROmorphone/PF 0.2 MG/ML SYRINGE IV PRN (12:45)
[2022-08-07] MEDS ORDERED: potassium Cl 20 mEq SR tablet PO PRN ×2 (12:45)
[2022-08-07] MEDS ORDERED: acetaminophen 325mg tablet PO PRN ×2 (12:45)
[2022-08-07] MEDS ORDERED: HYDROcodone/acetaminophen 5mg/325mg tablet PO PRN (12:45)
[2022-08-07] MEDS ORDERED: heparin 25,000 UNIT/250ml bag 250 ML IV PRN (12:45)
[2022-08-07] MEDS ORDERED: acetaminophen 650mg rectal suppository RC PRN (12:45)
[2022-08-07] MEDS ORDERED: magnesium hydroxide 30ml (MOM) UD suspension PO PRN (12:45)
[2022-08-07] MEDS ORDERED: ASPI-10 PO (12:58)
[2022-08-07] MEDS ORDERED: OXYC-145 PO (12:58)
[2022-08-07] MEDS: heparin 25,000 UNIT/250ml bag 250 ML IV PRN (13:02)
[2022-08-07 13:27] LABS: CLARITY,URINE CLEAR (Clear); COLOR,URINE YELLOW (Yellow); GLUCOSE, URINE NEGATIVE (Neg); KETONES,URINE NEGATIVE (Neg); LEUKOCYTE ESTERASE ,URINE NEGATIVE (Neg); NITRITES, URINE NEGATIVE (Neg); OCCULT BLOOD,URINE NEGATIVE (Neg); PROTEIN,URINE NEGATIVE (Neg); UROBILINOGEN,URINE 0.2 E.U/dL (0.2-1.0)
[2022-08-07 13:28] LABS: UA COLLECTION TYPE STRAIGHT CATH
[2022-08-07] MEDS ORDERED: HYDROmorphone inj. 0.5 MG/0.5 ML DISP.SYRIN IV PRN (16:40)
[2022-08-07] MEDS: K and/or MAG REPLACEMENT MC SCH (19:36)
[2022-08-07] MEDS: docusate sod 100mg capsule PO SCH (20:00)
[2022-08-07] MEDS ORDERED: temazepam 15mg capsule PO PRN (21:00)
--- NOTE | 2022-08-07 23:52 | NUR ---
Received from ER per stretcher, pt able to move self from stretcher to bed. Pt. is on 02 2L NC Sob with activity. Sats 96%. Pt. is on Heparin gtt at 1600 units per hour per peripheral IV. Last ptt 118, will redraw at 1200 MN. Pt has a gonzales cath with mod amt gato clear urine. Right hip incision slightly bruised with several noel intact.
[2022-08-08] VITALS (7 sets, daily range): BP systolic 107–136; BP diastolic 41–69
[2022-08-08] MEDS: ondansetron/PF 4mg/2ml inj IV PRN ×3 (02:15→20:06)
[2022-08-08] MEDS: heparin 10,000 units/1 ML INJ IV PRN ×2 (02:18→22:38)
[2022-08-08] MEDS: HYDROmorphone 1 mg/ml syringe IV PRN ×3 (02:31→20:07)
--- NOTE | 2022-08-08 03:31 | NUR ---
Ptt 32 Bolused and Heparin gtt adjusted accordingly. Pharmacy made aware. Pt. crying c/o right and left inner thigh pain and nausea medicated as needed tolerated well.
[2022-08-08] MEDS: heparin 25,000 UNIT/250ml bag 250 ML IV PRN ×2 (04:48→20:36)
[2022-08-08 06:49] LABS: BASOPHILS # (AUTO) 0.1 X10'3 (0-0.2); EOSINOPHILS # (AUTO) 0.5 X10'3 (0-0.9); EOSINOPHILS % (AUTO) 5.2 % (0-6); HEMATOCRIT 37.8 % (35.0-45.0); HEMOGLOBIN 12.3 g/dl (12.0-16.0); LYMPHOCYTES % (AUTO) 31.5 % (21-51); MEAN CORPUSCULAR HEMOGLOBIN 29.6 PG (27.0-31.0); MEAN CORPUSCULAR HGB CONC 32.6 g/dL (33.0-36.5); MEAN CORPUSCULAR VOLUME 90.6 FL (78-98); MEAN PLATELET VOLUME 9.1 FL (7.4-10.4); MONOCYTES # (AUTO) 0.8 X10'3 (0-0.9); MONOCYTES % (AUTO) 8.7 % (2-12); NEUTROPHILS % (AUTO) 53.6 % (42-75); PLATELET COUNT 278 X10'3 (140-440); RED BLOOD COUNT 4.17 X10'6 (4.20-5.60); RED CELL DISTRIBUTION WIDTH 13.9 % (11.5-14.5); WHITE BLOOD COUNT 9.4 X10'3 (4.5-11.0)
[2022-08-08 07:05] LABS: ALANINE AMINOTRANSFERASE 35 U/L (12-78); ALBUMIN 2.7 G/DL (3.4-5.0); ALBUMIN/GLOBULIN RATIO 0.8 (1.1-1.5); ALKALINE PHOSPHATASE 74 IU/L (46-116); ANION GAP 6 (8-16); BILIRUBIN,TOTAL 0.5 MG/DL (0.1-1.0); BLOOD UREA NITROGEN 12 MG/DL (7-18); BUN/CREATININE RATIO 22.2 (6.6-38.0); CHLORIDE 102 MMOL/L (99-107); CREATININE 0.54 MG/DL (0.40-0.90); GLUCOSE 119 MG/DL (70-104); MAGNESIUM 2.1 MG/DL (1.5-2.4); SODIUM 138 MMOL/L (135-145); TOTAL CARBON DIOXIDE 30.2 MMOL/L (24-32); TOTAL PROTEIN 6.1 G/DL (6.4-8.2); eGFR > 90 ML/MIN
[2022-08-08 07:10] LABS: ASPARTATE AMINO TRANSFERASE 39 U/L (10-37); POTASSIUM 4.5 MMOL/L (3.5-5.1)
[2022-08-08] MEDS: pantoprazole 40mg Tablet.DR PO SCH (07:28)
[2022-08-08] MEDS: docusate sod 100mg capsule PO SCH ×2 (07:28→20:06)
[2022-08-08] MEDS: K and/or MAG REPLACEMENT MC SCH ×2 (08:00→19:10)
--- NOTE | 2022-08-08 11:55 | NUR ---
Student documentation: I have reviewed and agree with all interventions, assessments performed and documented by Marvin student nurse.
--- NOTE | 2022-08-08 23:00 | NUR ---
Pt. is awake alert oriented in good spirits still c/o right hip pain. Medicated by IV as ordered. Will request po meds in am. IV in left arm intact Heparin gtt infusing at 1600 units /hr. PTT result 34. And dose increased to 2100 units/hr. Next ptt 0445 am. Pt. encouraged to keep right leg elevated on pillow bilateral pedal pulses palpable skin is warm and dry. Pt. still has staple sutures in right hip with light purple bruises. Able to walk today with c/o wobbly legs as yesterday. Pt has a purewick with mod amt yellow clear urine. Plan for home on oral blood thinner and walker or cane.
[2022-08-09] MEDS: HYDROmorphone 1 mg/ml syringe IV PRN (00:33)
[2022-08-09 02:07] VITALS: BP 117/59
[2022-08-09 04:54] LABS: BASOPHILS # (AUTO) 0.1 X10'3 (0-0.2); BASOPHILS % (AUTO) 1.2 % (0-1); EOSINOPHILS # (AUTO) 0.5 X10'3 (0-0.9); EOSINOPHILS % (AUTO) 5.1 % (0-6); HEMATOCRIT 37.9 % (35.0-45.0); HEMOGLOBIN 12.8 g/dl (12.0-16.0); LYMPHOCYTES # (AUTO) 3.2 X10'3 (1.1-4.8); LYMPHOCYTES % (AUTO) 35.3 % (21-51); MEAN CORPUSCULAR HEMOGLOBIN 30.3 PG (27.0-31.0); MEAN CORPUSCULAR HGB CONC 33.8 g/dL (33.0-36.5); MEAN CORPUSCULAR VOLUME 89.6 FL (78-98); MEAN PLATELET VOLUME 8.2 FL (7.4-10.4); MONOCYTES # (AUTO) 0.7 X10'3 (0-0.9); MONOCYTES % (AUTO) 7.8 % (2-12); NEUTROPHILS # (AUTO) 4.6 X10'3 (1.8-7.7); NEUTROPHILS % (AUTO) 50.6 % (42-75); PLATELET COUNT 288 X10'3 (140-440); RED BLOOD COUNT 4.23 X10'6 (4.20-5.60); RED CELL DISTRIBUTION WIDTH 13.8 % (11.5-14.5); WHITE BLOOD COUNT 9.1 X10'3 (4.5-11.0)
--- NOTE | 2022-08-09 05:00 | NUR ---
Ptt. 83 Reduced Heparin gtt to 2000u/hr. Pt. is tolerating Heparin well no signs of bleeding.
[2022-08-09 05:06] LABS: ALANINE AMINOTRANSFERASE 39 U/L (12-78); ALBUMIN 2.8 G/DL (3.4-5.0); ALBUMIN/GLOBULIN RATIO 0.8 (1.1-1.5); ALKALINE PHOSPHATASE 77 IU/L (46-116); ANION GAP 4 (8-16); ASPARTATE AMINO TRANSFERASE 25 U/L (10-37); BILIRUBIN,TOTAL 0.4 MG/DL (0.1-1.0); BLOOD UREA NITROGEN 10 MG/DL (7-18); BUN/CREATININE RATIO 17.2 (6.6-38.0); CHLORIDE 101 MMOL/L (99-107); CREATININE 0.58 MG/DL (0.40-0.90); GLUCOSE 115 MG/DL (70-104); MAGNESIUM 1.9 MG/DL (1.5-2.4); POTASSIUM 4.3 MMOL/L (3.5-5.1); SODIUM 138 MMOL/L (135-145); TOTAL CARBON DIOXIDE 32.7 MMOL/L (24-32); TOTAL PROTEIN 6.2 G/DL (6.4-8.2); eGFR > 90 ML/MIN
[2022-08-09] MEDS: heparin 25,000 UNIT/250ml bag 250 ML IV PRN (05:29)
[2022-08-09 07:00] VITALS: BP 141/86
[2022-08-09] MEDS: pantoprazole 40mg Tablet.DR PO SCH (07:30)
[2022-08-09] MEDS: docusate sod 100mg capsule PO SCH (08:00)
[2022-08-09] MEDS: K and/or MAG REPLACEMENT MC SCH (08:00)
[2022-08-09] MEDS ORDERED: APIX5TAB3 PO (12:17)
== END 2022-08-09 15:33 | disposition home or self-care (01) | DRG 299 ==
LOC: ER 08:52 → ED HOLD 12:56 → UNDOADMIN 12:56 → ED HOLD 21:43 → PCU 3S 23:25 → ED HOLD 23:25
PROVIDERS: ADMIT Family Medicine; ATTEND Family Medicine
PROC: B32T1ZZ Computerized Tomography (CT Scan) of Left Pulmonary Artery using Low Osmolar Contrast (ICD-10-PCS; principal; 2022-08-07)
PROC: B3201ZZ Computerized Tomography (CT Scan) of Thoracic Aorta using Low Osmolar Contrast (ICD-10-PCS; 2022-08-07)
PROC: B32S1ZZ Computerized Tomography (CT Scan) of Right Pulmonary Artery using Low Osmolar Contrast (ICD-10-PCS; 2022-08-07)
DX: I82.461 Acute embolism and thrombosis of right calf muscular vein (principal); I26.93 Single subsegmental thrombotic pulmonary embolism without acute cor pulmonale; J96.01 Acute respiratory failure with hypoxia; E03.9 Hypothyroidism, unspecified; E11.9 Type 2 diabetes mellitus without complications; Z79.01 Long term (current) use of anticoagulants; Z85.43 Personal history of malignant neoplasm of ovary; Z90.710 Acquired absence of both cervix and uterus; Z56.0 Unemployment, unspecified; Z88.8 Allergy status to other drugs, medicaments and biological substances; Z79.899 Other long term (current) drug therapy; Z79.82 Long term (current) use of aspirin; S72.91XD Unspecified fracture of right femur, subsequent encounter for closed fracture with routine healing
CPT/HCPCS: 36415; 36600; 71045; 71275; 80053; 81003; 82803; 83735; 83880; 84484; 85018; 85025; 85730; 87081; 93005; 93306; 93971; 96361; 96374; 96375; 97110; 97161; 97530; 99291; A6258; G0378; J1170; J1644; J2270; J2405; J3490; J7030; Q9967

== ENCOUNTER 2022-08-17 12:04 | Emergency (ER) | payer BC ==
[~2022-08-17] VITALS: Ht 165.1 cm; Wt 118.0 kg
[~2022-08-17 12:04] MED LIST changes: +APIX5TAB3 PO; -ASPI-1 PO; +OXYC-145 PO; -PER5325T PO
[2022-08-17 12:23] VITALS: BP 117/84
== END 2022-08-17 13:12 | disposition home or self-care (01) ==
LOC: ER 12:04
DX: S71.011D Laceration without foreign body, right hip, subsequent encounter (principal); Z48.00 Encounter for change or removal of nonsurgical wound dressing; E03.9 Hypothyroidism, unspecified; Z87.81 Personal history of (healed) traumatic fracture; Z88.5 Allergy status to narcotic agent; X58.XXXD Exposure to other specified factors, subsequent encounter
CPT/HCPCS: 99281

== ENCOUNTER 2024-06-02 00:06 | Emergency (ER) | payer BC ==
[~2024-06-02] VITALS: Ht 167.6 cm; Wt 110.0 kg
[2024-06-02] MEDS: bisacodyl 10mg suppository rectal RC ONE (01:15)
[2024-06-02 01:17] LABS: BASOPHILS # (AUTO) 0.1 X10'3 (0-0.2); BASOPHILS % (AUTO) 1.3 % (0-1); EOSINOPHILS # (AUTO) 0.2 X10'3 (0-0.9); HEMATOCRIT 42.7 % (35.0-45.0); HEMOGLOBIN 14.6 g/dl (12.0-16.0); LYMPHOCYTES # (AUTO) 2.8 X10'3 (1.1-4.8); LYMPHOCYTES % (AUTO) 29.8 % (21-51); MEAN CORPUSCULAR HEMOGLOBIN 30.8 PG (27.0-31.0); MEAN CORPUSCULAR HGB CONC 34.1 g/dL (33.0-36.5); MEAN CORPUSCULAR VOLUME 90.3 FL (78-98); MEAN PLATELET VOLUME 9.4 FL (7.4-10.4); MONOCYTES # (AUTO) 0.6 X10'3 (0-0.9); MONOCYTES % (AUTO) 6.6 % (2-12); NEUTROPHILS # (AUTO) 5.6 X10'3 (1.8-7.7); NEUTROPHILS % (AUTO) 60.3 % (42-75); PLATELET COUNT 261 X10'3 (140-440); RED BLOOD COUNT 4.72 X10'6 (4.20-5.60); WHITE BLOOD COUNT 9.4 X10'3 (4.5-11.0)
[2024-06-02 01:32] LABS: ALANINE AMINOTRANSFERASE 41 U/L (12-78); ALBUMIN 3.8 G/DL (3.4-5.0); ALBUMIN/GLOBULIN RATIO 1.1 (1.1-1.5); ALKALINE PHOSPHATASE 117 IU/L (46-116); ANION GAP 7 (8-16); ASPARTATE AMINO TRANSFERASE 21 U/L (10-37); BILIRUBIN,DIRECT 0.1 MG/DL (0-0.3); BILIRUBIN,TOTAL 0.4 MG/DL (0.1-1.0); BLOOD UREA NITROGEN 21 MG/DL (7-18); BUN/CREATININE RATIO 29.6 (10.0-20.0); CALCIUM 9.2 MG/DL (8.5-10.1); CHLORIDE 105 MMOL/L (99-107); CREATININE 0.71 MG/DL (0.40-0.90); GLUCOSE 109 MG/DL (70-104); LIPASE 25 U/L (16-77); POTASSIUM 3.9 MMOL/L (3.5-5.1); SODIUM 140 MMOL/L (135-145); TOTAL CARBON DIOXIDE 27.6 MMOL/L (24-32); TOTAL PROTEIN 7.4 G/DL (6.4-8.2); eCRCL 80 ML/MIN; eGFR 84 ML/MIN
[2024-06-02] MEDS: normal saline 1000ML IV soln IVB ONE (02:25)
[2024-06-02] MEDS: lactulose 20gm/30ml cup PO ONE (02:26)
[2024-06-02] MEDS ORDERED: BISA10SU60 RC (02:47)
[2024-06-02 02:49] LABS: BILIRUBIN,URINE NEGATIVE (Neg); CLARITY,URINE CLEAR (Clear); COLOR,URINE YELLOW (Yellow); GLUCOSE, URINE NEGATIVE (Neg); KETONES,URINE NEGATIVE (Neg); LEUKOCYTE ESTERASE ,URINE NEGATIVE (Neg); NITRITES, URINE NEGATIVE (Neg); OCCULT BLOOD,URINE NEGATIVE (Neg); PROTEIN,URINE NEGATIVE (Neg); UROBILINOGEN,URINE 0.2 E.U/dL (0.2-1.0)
[2024-06-02 02:59] LABS: UA COLLECTION TYPE CLN CATCH MIDSTREAM
[2024-06-02 03:12] VITALS: BP 137/44; PULSE 82; RESP 15; TEMP 96.7; O2SAT 95
== END 2024-06-02 03:56 | disposition home or self-care (01) ==
LOC: ER 00:07
DX: K59.00 Constipation, unspecified (principal); E03.9 Hypothyroidism, unspecified; E11.9 Type 2 diabetes mellitus without complications; Z85.43 Personal history of malignant neoplasm of ovary; Z56.0 Unemployment, unspecified; Z98.890 Other specified postprocedural states; Z88.8 Allergy status to other drugs, medicaments and biological substances; Z79.899 Other long term (current) drug therapy; Z90.710 Acquired absence of both cervix and uterus
CPT/HCPCS: 36415; 74018; 80048; 80076; 81003; 83690; 85025; 93005; 96360; 99285; J7030